=== PATIENT | female | born 1995 | race Caucasian/White ===

== ENCOUNTER 2017-11-27 22:24 | Emergency (ER) | payer MEDICAID ==
[2017-11-27 22:50] VITALS: BP 135/76
--- NOTE | 2017-11-28 00:43 | EDM.PDOC ---
ED HPI GENERAL MEDICAL PROBLEM - General Chief Complaint: [employer] Problem Stated Complaint: VAGINAL OBSTRUCTION, [id number] Time Seen by Provider: 11/28/17 00:08 Source of Information: Reports: Patient History Limitations: Reports: No Limitations - History of Present Illness INITIAL COMMENTS - FREE TEXT/NARRATIVE: Patient comes emergency department today with complaints of questionable foreign body in her vagina. She recently finished her period and on Friday had intercourse with her boyfriend who noticed that she had a rather rough area in her vagina. Since that time she has had increased drainage which is somewhat dark brown in color and today was noted to be quite foul-smelling. she wonders if she does not have a tampon retained in her vagina. She has not placed a tampon for 7 days. She has not had any fever or chills. She not vomiting. She denies any flank pain. She denies any hematuria dysuria or urinary frequency. She has attempted to locate the possible foreign material within her vagina with out success. She denies any abdominal pain denies any pelvic pain. - Related Data Allergies Allergy/AdvReac Type Severity Reaction Status Date / Time No Known Allergies Allergy Verified 11/27/17 22:49 Home Meds: Home Meds . [No Known Home Meds] 11/27/17 [History] Past Medical History - Past Health History Medical/Surgical History: Denies Medical/Surgical History Cardiovascular History: Reports: None Respiratory History: Reports: None Gastrointestinal History: Reports: None Genitourinary History: Reports: None [employer] History: Reports: Musculoskeletal History: Reports: None Neurological History: Reports: None Psychiatric History: Reports: None Endocrine/Metabolic History: Reports: None Hematologic History: Reports: None Immunologic History: Reports: None Oncologic (Cancer) History: Reports: None Dermatologic History: Reports: None - Infectious Disease History Infectious Disease History: Reports: None - Past Surgical History Head Surgeries/Procedures: Reports: None Social & Family History - Family History Family Medical History: Noncontributory - Tobacco Use Smoking Status *Q: Never Smoker Second Hand Smoke Exposure: No - Alcohol Use Days Per Week of Alcohol Use: 0 - Recreational Drug Use Recreational Drug Use: No ED ROS GENERAL - Review of Systems Review Of Systems: ROS reveals no pertinent complaints other than HPI. ED EXAM, GI/ABD - Physical Exam Exam: See Below Exam Limited By: No Limitations General Appearance: Alert, WD/WN, No Apparent Distress Respiratory/Chest: No Respiratory Distress, Lungs Clear, Normal Breath Sounds Cardiovascular: Normal Peripheral Pulses, Regular Rate, Rhythm, No Edema GI/Abdominal Exam: Normal Bowel Sounds, Soft, Non-Tender, No Organomegaly, No Distention (Female) Exam: Vaginal Discharge (there is a very foul smelling liquidy brown discharge.), Other (exam completed with Kamilah GIRON in the room. with the speculum inserted through the vagina I quickly identified an area of foreign material fibrous in nature that was black in color. With the use of a ring forceps I was able to extract the foreign material rather easily. It was quickly identified as a tampon. Further examination of the vaginal vault shows some more varied arc liquidy discharge. There is no erythema or excoriation. The cervix is unremarkable. Bimanual exam without adnexal tenderness and a negative chandelier sign.). No: Adnexal Mass, Cervical Dilatation, Cervical Discharge, Cervical Fluid, Cervical Lesions, Cervix Motion Tenderness, Vaginal Lesions, Vaginal Tears Rectal (Female) Exam: Deferred Back Exam: Normal Inspection, Full Range of Motion. No: CVA Tenderness (L), CVA Tenderness (R) Extremities: Normal Inspection, Normal Range of Motion Neurological: Alert, Oriented Psychiatric: Normal Affect, Normal Mood Skin Exam: Warm, Dry, Intact, Normal Color Lymphatic: No Adenopathy Course - Vital Signs Last Recorded V/S: Last Vital Signs Temp 36.6 C 11/27/17 22:46 Pulse 101 H 11/27/17 22:46 Resp 16 11/27/17 22:46 BP 135/76 11/27/17 22:46 Pulse Ox 97 11/27/17 22:46 - Orders/Labs/Meds Labs: Laboratory Tests 11/27/17 11/27/17 11/27/17 Range/Units 22:55 22:55 22:55 Urine Color Yellow (YELLOW) Urine Appearance Clear (CLEAR) Urine pH 6.0 (5.0-9.0) Ur Specific [place] 1.025 (1.005-1.030) Urine Protein Negative (NEGATIVE) Urine Glucose (UA) Negative (NEGATIVE) Urine Ketones Negative (NEGATIVE) Urine Occult Blood Moderate H (NEGATIVE) Urine Nitrite Negative (NEGATIVE) Urine Bilirubin Negative (NEGATIVE) Urine Urobilinogen 4.0 H (0.2-1.0) mg/dL Ur Leukocyte Esterase Negative (NEGATIVE) Urine RBC 5-10 H /HPF Urine WBC 0-5 (0-5/HPF) /HPF Ur Epithelial Cells Many H /HPF Urine Bacteria Few (0-FEW/HPF) /HPF Urine Mucus Moderate H /LPF Urine HCG, Qual Negative Urine Opiates Screen Negative (NEGATIVE) Ur Oxycodone Screen Negative (NEGATIVE) Urine Methadone Screen Negative (NEGATIVE) Ur Barbiturates Screen Negative (NEGATIVE) U Tricyclic Antidepress Negative (NEGATIVE) Ur Phencyclidine Scrn Negative (NEGATIVE) Ur Amphetamine Screen Negative (NEGATIVE) U Methamphetamines Scrn Negative (NEGATIVE) Urine MDMA Screen Negative (NEGATIVE) U Benzodiazepines Scrn Negative (NEGATIVE) Urine Cocaine Screen Negative (NEGATIVE) U Marijuana (THC) Screen Positive H (NEGATIVE) - Re-Assessments/Exams Free Text/Narrative Re-Assessment/Exam: 11/28/17 02:21 see exam notes for procedure of removal of retained tampon in the vaginal vault. Departure - Departure Time of Disposition: 00:40 Disposition: Home, Self-Care 01 Clinical Impression: Retained tampon Qualifiers: Encounter type: initial encounter Qualified Code(s): T19.2XXA - Foreign body in vulva and vagina, initial encounter - Discharge Information Instructions: Vaginal Foreign Body, [id number] Referrals: Jordyn Parada NP [Primary Care Provider] - Forms: ED Department Discharge Additional Instructions: Tylenol and or Ibuprofen as needed for pain. Abstain from sexual activity for the next 7 days. MetroGel 1 application every bedtime for the next 5 days. Return to the ED if new or worsening symptoms. Follow up with primary care provider if any problems. - Assessment/Plan Assessment:: Retained tampon. Plan: Tylenol and or Ibuprofen as needed for pain. Abstain from sexual activity for the next 7 days. MetroGel 1 application every bedtime for the next 5 days. Return to the ED if new or worsening symptoms. Follow up with primary care provider if any problems.
== END 2017-11-28 00:50 | disposition home or self-care (01) ==
LOC: DL.ED 22:24
DX: T19.2XXA Foreign body in vulva and vagina, initial encounter (principal); X58.XXXA Exposure to other specified factors, initial encounter
CPT/HCPCS: 80305; 81001; 81025; 99282